=== PATIENT | female | born 1975 | race Two or more races ===

== ENCOUNTER 2016-07-22 15:57 | Outpatient (CLI) | payer BC | END 2016-07-22 23:59 | disposition home or self-care (01) | LOC: WOU 15:57 | PROVIDERS: ATTEND Specialist | DX: T86.828 Other complications of skin graft (allograft) (autograft) (principal); T81.89XA Other complications of procedures, not elsewhere classified, initial encounter; Z90.13 Acquired absence of bilateral breasts and nipples; Z85.3 Personal history of malignant neoplasm of breast; Z90.710 Acquired absence of both cervix and uterus; Z80.3 Family history of malignant neoplasm of breast; J45.909 Unspecified asthma, uncomplicated | CPT/HCPCS: 99204; A6209; A6402; G0463 ==

== ENCOUNTER 2017-03-31 09:15 | Outpatient (CLI) | payer BC | END 2017-03-31 23:59 | disposition home or self-care (01) | LOC: WOU 09:15 | PROVIDERS: ATTEND Specialist | DX: T86.828 Other complications of skin graft (allograft) (autograft) (principal); Z90.11 Acquired absence of right breast and nipple; N64.1 Fat necrosis of breast; Z80.3 Family history of malignant neoplasm of breast; J45.909 Unspecified asthma, uncomplicated; Z90.710 Acquired absence of both cervix and uterus; T81.89XA Other complications of procedures, not elsewhere classified, initial encounter | CPT/HCPCS: 99215; A6402; G0463 ==

== ENCOUNTER 2017-04-07 11:15 | Outpatient (CLI) | payer BC | END 2017-04-07 23:59 | disposition home or self-care (01) | LOC: WOU 11:15 | PROVIDERS: ATTEND Specialist | DX: T86.828 Other complications of skin graft (allograft) (autograft) (principal); T81.89XA Other complications of procedures, not elsewhere classified, initial encounter; Z90.13 Acquired absence of bilateral breasts and nipples; Z80.3 Family history of malignant neoplasm of breast | CPT/HCPCS: 99213; A6402; G0463 ==

== ENCOUNTER 2017-04-28 14:30 | Outpatient (CLI) | payer BC | END 2017-04-28 23:59 | disposition home or self-care (01) | LOC: WOU 14:30 | PROVIDERS: ATTEND Specialist | DX: T86.828 Other complications of skin graft (allograft) (autograft) (principal); T81.89XD Other complications of procedures, not elsewhere classified, subsequent encounter; Z90.13 Acquired absence of bilateral breasts and nipples; Z80.3 Family history of malignant neoplasm of breast | CPT/HCPCS: 99214; A6402; G0463 ==